=== PATIENT | male | born 1980 | race African-American/Black ===

== ENCOUNTER 2017-09-20 20:09 | Emergency (ER) | payer BC ==
[~2017-09-20] VITALS: Ht 188 cm; Wt 86.0 kg
[2017-09-20 20:41] VITALS: BP 113/68
== END 2017-09-20 22:08 | disposition left against medical advice (07) ==
LOC: ER 21:36
DX: M54.9 Dorsalgia, unspecified (principal); Z53.21 Procedure and treatment not carried out due to patient leaving prior to being seen by health care provider